=== PATIENT | male | born 1965 ===

== ENCOUNTER 2024-08-31 20:35 | Inpatient (IN) | payer MEDICAID, OTHER ==
[~2024-08-31] VITALS: Ht 165.1 cm; Wt 95.9 kg
[2024-08-31 21:17] LABS: BASOPHILS % (AUTO) 0.1 % (0.0-2.0); EOSINOPHILS % (AUTO) 3.6 % (1.0-6.0); HEMATOCRIT 39.1 % (41-53); HEMOGLOBIN 13.3 g/dL (13.5-17.5); LYMPHOCYTES # (AUTO) 3.2 K/uL (1.0-4.8); LYMPHOCYTES % (AUTO) 27.6 % (22.0-44.0); MEAN CORPUSCULAR HGB CONC 34.1 G/dL (31.0-37.0); MEAN CORPUSCULAR VOLUME 85 fL (80-100); MONOCYTES # (AUTO) 1.3 K/uL (0.1-1.0); MONOCYTES % (AUTO) 11.5 % (2.0-9.0); NEUTROPHILS # (AUTO) 6.6 K/uL (1.8-7.7); NEUTROPHILS % (AUTO) 57.2 % (40.0-70.0); PLATELET COUNT (AUTO) 235 K/uL (150-450); RED CELL DISTRIBUTION WIDTH 14.2 % (11.5-14.5); WHITE BLOOD COUNT (AUTO) 11.6 K/uL (4.5-11.0)
[2024-08-31 21:28] LABS: CALCIUM, TOTAL 9.5 mg/dL (8.8-10.5); CREATININE 1.37 mg/dL (0.60-1.30); POTASSIUM 4.1 mmol/L (3.5-5.1)
[2024-09-01 01:14] LABS: COVID AG,FIA SOURCE NASAL SWAB
[2024-09-01 01:46] LABS: SARS-COV2 (COVID) ANTIGEN,FIA Negative (Negative)
[2024-09-01] MEDS ORDERED: LORazepam 2 MG TABLET PO PRN (02:15)
[2024-09-01] MEDS ORDERED: LORazepam 2 MG/ML VIAL IM PRN (02:15)
[2024-09-01] MEDS ORDERED: ChlorproMAZINE HCL 50 MG/2 ML AMP IM PRN (02:15)
[2024-09-01] MEDS ORDERED: DiphenhydrAMINE HCL 50 MG/ML VIAL IM PRN (02:15)
[2024-09-01] MEDS ORDERED: ZOLPIDEM TARTRATE 5 MG TABLET PO PRN (02:15)
[2024-09-01 02:23] VITALS: O2SAT 98
[2024-09-01] MEDS: NICOTINE 14 MG/24 HOUR PATCH TD ONE (03:00)
[2024-09-01 03:06] LABS: APPEARANCE,URINE CLEAR (CLEAR); BILIRUBIN,URINE NEGATIVE (NEGATIVE); COLOR,URINE LIGHT YELLOW (YELLOW); GLUCOSE, URINE (UA) NEGATIVE (NEGATIVE); KETONES,URINE NEGATIVE (NEGATIVE); LEUKOCYTE ESTERASE ,URINE NEGATIVE (NEGATIVE); NITRATE,URINE NEGATIVE (NEGATIVE); OCCULT BLOOD,URINE NEGATIVE (NEGATIVE); PH,URINE 6.5 (5.0-8.0); PH,URINE DRUG SCREEN 6.5 (5.0-8.0); PROTEIN,URINE NEGATIVE (NEGATIVE); SPECIFIC GRAVITIY, URINE 1.012 (1.003-1.030); UROBILINOGEN,URINE <=1.0 mg/dL (<=1.0)
[2024-09-01 03:13] LABS: ALCOHOL, URINE DRUG SCREEN NEGATIVE (NEGATIVE); AMPHET/METH SCREEN,URINE NEGATIVE (NEGATIVE); BARBITURATE SCREEN, URINE NEGATIVE (NEGATIVE); BENZODIAZEPINES SCREEN,URINE NEGATIVE (NEGATIVE); CANNABINOID SCREEN,URINE NEGATIVE (NEGATIVE); COCAINE SCREEN,URINE NEGATIVE (NEGATIVE); METHADONE SCREEN, URINE NEGATIVE (NEGATIVE); OPIATE SCREEN,URINE NEGATIVE (NEGATIVE); PHENCYCLIDINE SCREEN,URINE NEGATIVE (NEGATIVE)
[2024-09-01] MEDS: CALCIUM CARBONATE 500 MG CHEWABLE TABLET CHEW ONE (03:20)
[2024-09-01 05:02] VITALS: BP 162/92; PULSE 98; RESP 18; TEMP 97.9; O2SAT 97
[2024-09-01] MEDS ORDERED: PNEUMOCOCCAL VACCINE POLYVALENT 0.5 ML SYRINGE [PPSV23] IM. ONE (05:15)
[2024-09-01] MEDS ORDERED: ONDANSETRON 4 MG TABLET PO PRN (06:30)
[2024-09-01] MEDS ORDERED: BENZOCAINE/MENTHOL [CEPACOL] LOZENGE PO PRN (06:30)
[2024-09-01] MEDS ORDERED: MAGNESIUM HYDROXIDE SUSPENSION 30 ML UDCUP PO PRN (06:30)
[2024-09-01] MEDS ORDERED: IBUPROFEN 600 MG TABLET PO PRN (06:30)
[2024-09-01] MEDS ORDERED: OMEPRAZOLE 20 MG CAPSULE PO PRN (06:30)
[2024-09-01] MEDS ORDERED: MAG HYDROX/ALUMINUM HYD/SIMETH ES 30 ML SUSPENSION UDCUP PO PRN (06:30)
[2024-09-01] MEDS ORDERED: ALBUTEROL SULFATE HFA 90 MCG/PUFF 8 GM INHALER IH PRN (06:30)
[2024-09-01] MEDS ORDERED: PETROLATUM,WHITE 28 GM JELLY TP PRN (06:30)
[2024-09-01] MEDS ORDERED: ACETAMINOPHEN 325 MG TABLET PO PRN (06:30)
[2024-09-01] MEDS ORDERED: LOPERAMIDE HCL 2 MG CAPSULE PO PRN (06:30)
[2024-09-01] MEDS ORDERED: BACITRACIN 28 GM OINTMENT TP PRN (06:30)
[2024-09-01] MEDS ORDERED: CloNIDine HCL 0.1 MG TABLET PO PRN (06:30)
[2024-09-01] MEDS ORDERED: DOCUSATE SODIUM 100 MG CAPSULE PO PRN (06:30)
[2024-09-01] MEDS: OLANZapine 5 MG RAPDIS TABLET PO SCH (09:06)
[2024-09-01] MEDS: DIVALPROEX SODIUM 500 MG ER TABLET PO SCH (09:06)
[2024-09-01] MEDS: LITHIUM CARBONATE 300 MG CAPSULE PO SCH (09:07)
[2024-09-01] MEDS: ChlorproMAZINE HCL 100 MG TABLET PO PRN (09:08)
[2024-09-01 09:37] VITALS: BP 128/90; PULSE 95; RESP 18; TEMP 96.7; O2SAT 98
[2024-09-01] MEDS: NICOTINE 14 MG/24 HOUR PATCH TD SCH (11:01)
[2024-09-01] MEDS: MELATONIN 5 MG TABLET PO SCH (20:54)
[2024-09-01 22:48] VITALS: BP 143/87; PULSE 98; RESP 18; TEMP 97.1; O2SAT 99
[2024-09-02 08:56] LABS: HEMOGLOBIN 14.1 g/dL (13.5-17.5); LYMPHOCYTES # (AUTO) 2.4 K/uL (1.0-4.8); LYMPHOCYTES % (AUTO) 21.4 % (22.0-44.0); MEAN CORPUSCULAR HGB CONC 33.5 G/dL (31.0-37.0); MEAN CORPUSCULAR VOLUME 86 fL (80-100); MONOCYTES # (AUTO) 0.9 K/uL (0.1-1.0); MONOCYTES % (AUTO) 8.3 % (2.0-9.0); NEUTROPHILS # (AUTO) 7.3 K/uL (1.8-7.7); NEUTROPHILS % (AUTO) 66.3 % (40.0-70.0); PLATELET COUNT (AUTO) 233 K/uL (150-450); RED BLOOD CELL COUNT(AUTO) 4.86 MIL/uL (4.50-5.90); RED CELL DISTRIBUTION WIDTH 14.2 % (11.5-14.5)
[2024-09-02 08:57] VITALS: BP 130/96; PULSE 95; RESP 18; TEMP 96.8; O2SAT 97
[2024-09-02 09:09] LABS: HEMOGLOBIN A1C 5.1 % (3.8-5.6)
[2024-09-02 09:22] LABS: ALBUMIN 3.5 g/dL (3.4-5.0); BILIRUBIN,TOTAL 0.3 mg/dL (0.1-1.0); CALCIUM, TOTAL 10.1 mg/dL (8.8-10.5); CHOL/HDL RATIO 4.9 (4.2-7.3); CREATININE 1.25 mg/dL (0.60-1.30); POTASSIUM 4.2 mmol/L (3.5-5.1); T4 (THYROXINE) 7.5 mcg/dL (4.7-13.3); THYROID STIMULATING HORMONE 1.98 uIU/mL (0.36-3.74); TOTAL PROTEIN, SERUM 7.3 g/dL (6.4-8.2)
[2024-09-02 22:47] VITALS: BP 145/90; PULSE 114; RESP 18; TEMP 97.2; O2SAT 100
[2024-09-03 09:52] LABS: LITHIUM 0.55 mmol/L (0.60-1.20)
[2024-09-03 09:59] VITALS: RESP 18
[2024-09-03] MEDS: ETHYL ALCOHOL 62% ANTISEPTIC NASAL SANITIZER 0.6 ML AMPUL NASAL SCH (11:41)
[2024-09-03 21:00] VITALS: TEMP 98.1; O2SAT 96
[2024-09-04 10:04] VITALS: BP 135/85; PULSE 94; RESP 16; TEMP 96.5; O2SAT 100
[2024-09-04 20:11] VITALS: BP 147/97; PULSE 99; RESP 18; TEMP 97.1; O2SAT 99
[2024-09-05 14:38] VITALS: BP 114/92; PULSE 100; RESP 16; TEMP 97.7; O2SAT 97
[2024-09-05 21:47] VITALS: RESP 18
[2024-09-06] MEDS: LITHIUM CARBONATE 300 MG CAPSULE PO SCH (08:57)
[2024-09-06] MEDS ORDERED: DIVA-153 PO (10:36)
[2024-09-06] MEDS ORDERED: MELA5TAB40 PO (10:36)
[2024-09-06] MEDS ORDERED: LITH300C3 PO (10:36)
[2024-09-06] MEDS ORDERED: OLAN5TAB94 PO (10:36)
[2024-09-06 12:32] VITALS: BP 123/69; PULSE 100; RESP 18; TEMP 97.1; O2SAT 98
== END 2024-09-06 14:00 | DRG 750 ==
LOC: EMS 20:35 → 3EC 09-01 04:03
PROVIDERS: ADMIT Psychiatry & Neurology Psychiatry; ATTEND Psychiatry & Neurology Psychiatry
PROC: GZHZZZZ Group Psychotherapy (ICD-10-PCS; principal; 2024-09-01)
PROC: GZ58ZZZ Individual Psychotherapy, Cognitive-Behavioral (ICD-10-PCS; 2024-09-01)
PROC: GZ56ZZZ Individual Psychotherapy, Supportive (ICD-10-PCS; 2024-09-01)
DX: F25.0 Schizoaffective disorder, bipolar type (principal); N17.9 Acute kidney failure, unspecified; I50.9 Heart failure, unspecified; I11.0 Hypertensive heart disease with heart failure; Z20.822 Contact with and (suspected) exposure to COVID-19; F32.9 Major depressive disorder, single episode, unspecified; J44.9 Chronic obstructive pulmonary disease, unspecified; F41.9 Anxiety disorder, unspecified; K21.9 Gastro-esophageal reflux disease without esophagitis; G47.00 Insomnia, unspecified; K59.00 Constipation, unspecified; F17.210 Nicotine dependence, cigarettes, uncomplicated; Z55.9 Problems related to education and literacy, unspecified; Z59.9 Problem related to housing and economic circumstances, unspecified; Z60.8 Other problems related to social environment; Z63.9 Problem related to primary support group, unspecified; Z65.3 Problems related to other legal circumstances
CPT/HCPCS: 80048; 80053; 80061; 80164; 80178; 80307; 81003; 83036; 84436; 84443; 85025; 87081; 99285; G0480